=== PATIENT | male | born 1945 | race Caucasian/White ===

== ENCOUNTER 2017-11-19 19:27 | Emergency (ER) | payer OTHER ==
[~2017-11-19] VITALS: Ht 177.8 cm; Wt 107.5 kg
[~2017-11-19 19:27] MED LIST: ASPEC325 PO; BUPR75TA20 PO; CLON0.2T INTRAD; CRD4 PO; DICL1SOL6 TOP; FRRG PO; HYDR12.55 PO; LISI-461 PO; METF500T PO; SITA100T3 PO; VERA120T15 PO
[2017-11-19] MEDS ORDERED: RAPID SEQUENCE INDUCTION BAG ONE (19:31)
[2017-11-19 19:54] VITALS: TEMP 34.5; O2SAT 99; Ht 177.8 cm; Wt 107.5 kg
[2017-11-19] MEDS ORDERED: SITA100T3 PO (20:06)
[2017-11-19] MEDS ORDERED: VERA1TAB53 PO (20:06)
[2017-11-19] MEDS ORDERED: METF-383 PO (20:06)
[2017-11-19] MEDS ORDERED: BUPR75TA20 PO (20:06)
[2017-11-19] MEDS ORDERED: LISI-461 PO (20:06)
[2017-11-19] MEDS ORDERED: HYDR25TA4 PO (20:06)
[2017-11-19] MEDS ORDERED: FINA5TAB PO (20:06)
[2017-11-19] MEDS ORDERED: CTPTP3 TOP (20:06)
[2017-11-19] MEDS ORDERED: CRD4 PO (20:06)
[2017-11-19] MEDS ORDERED: DOXA2TAB PO (20:06)
[2017-11-19] MEDS ORDERED: SODIUM CHLORIDE 0.9% 1000ML 1,000 ML IV STA (20:07)
[2017-11-19] MEDS ORDERED: MIDAZOLAM HCL 1 MG/ML 2ML VIAL ONE ×2 (20:10→20:38)
[2017-11-19] MEDS ORDERED: NiCARDipine HCL INJ 2.5 MG/ML 10 ML AMP ONE (20:11)
[2017-11-19] MEDS ORDERED: FENTANYL CITRATE INJ 50 MCG/1 ML 2 ML VIAL ONE ×2 (20:11→20:37)
[2017-11-19] MEDS ORDERED: NITROGLYCERIN/D5W 100MCG/ML 20ML SYR ONE (20:11)
[2017-11-19] MEDS ORDERED: HEPARIN SOD (PORCINE) 1000 UNIT/ML 10 ML VIAL ONE (20:11)
[2017-11-19 20:14] LABS: ISTAT CREATININE 1.2 mg/dl (0.6-1.3); ISTAT IONIZED CALCIUM 1.08 mmol/l (1.12-1.32); ISTAT POTASSIUM 3.9 mEq/L (3.3-5.0)
[2017-11-19 20:15] LABS: BASO % 0.2 %; BASO ABS # 0.04 K/uL (0-0.2); EOS % 1.2 %; EOS ABS # 0.27 K/uL (0-0.5); HEMATOCRIT 45.3 % (42-52); IG# 0.19 K/uL (0.00-0.02); LYMPH % 18.4 %; LYMPH ABS # 4.02 K/uL (1.2-3.4); MEAN CELL VOLUME 92.1 fL (80-100); MEAN CORPUSCULAR HEMOGLOBIN 30.5 pg (25-34); MEAN CORPUSCULAR HGB CONC 33.1 g/dl (32-36); MEAN PLATELET VOLUME 10.8 fL (7.4-10.4); MONO % 5.4 %; MONO ABS # 1.17 K/uL (0.11-0.59); NEUT % 73.9 %; NEUT ABS # 16.11 K/uL (1.4-6.5); PLATELET COUNT 190 K/uL (130-400); RED CELL DISTRIBUTION WIDTH CV 14.9 % (11.5-14.5); RED CELL DISTRIBUTION WIDTH SD 50.2 fL (36.4-46.3)
--- NOTE | 2017-11-19 20:20 | DIAGNOSTIC IMAGING REPORT ---
ADDENDUM Endotracheal tube courses towards right mainstem bronchus at the level of the stacey. Retraction with follow-up imaging recommended. Electronically signed by: Drew Sauer M.D. 11/19/2017 8:59 PM Dictated Date/Time: 11/19/2017 8:59 PM ORIGINAL REPORT CHEST ONE VIEW PORTABLE HISTORY: 72 years-old Male PORTABLE acute cardiac arrest COMPARISON: None available TECHNIQUE: Supine AP view of the chest FINDINGS: Endotracheal tube overlies the midline, 1.4 cm superior to the stacey. The patient is rotated to the right. Enteric tube courses below the diaphragm into the region of the gastric lumen. Lungs are hypoinflated. Cardiac silhouette appears mildly enlarged. There is mild mediastinal widening with bronchovascular crowding and pulmonary vascular congestion. No pneumothorax, pleural effusion, overt pulmonary edema or focal airspace consolidation. Bones of the chest appear grossly intact. IMPRESSION: 1. Endotracheal tube overlies the midline, 1.4 cm superior to the stacey. Enteric tube courses into the region of the gastric lumen. 2. Hypoinflation with bronchovascular crowding and pulmonary vascular congestion. The above report was generated using voice recognition software. It may contain grammatical, syntax or spelling errors. Electronically signed by: Drew Sauer M.D. 11/19/2017 8:19 PM Dictated Date/Time: 11/19/2017 8:17 PM
[2017-11-19 20:23] LABS: INR 1.1 (0.9-1.1); PTT PATIENT 27.9 SECONDS (21.0-31.0)
[2017-11-19] MEDS ORDERED: MANNITOL 20% 500 ML BAG IV ONE (20:30)
[2017-11-19] MEDS ORDERED: FENTANYL CITRATE INJ 50 MCG/1 ML 2 ML VIAL IV STA (20:36)
[2017-11-19] MEDS ORDERED: MIDAZOLAM HCL 1 MG/ML 2ML VIAL IV STA (20:36)
--- NOTE | 2017-11-19 20:37 | DIAGNOSTIC IMAGING REPORT ---
HEAD WITHOUT CONTRAST (CT) CLINICAL HISTORY: 72 years-old Male with fall, arrest. Acute fall with cardiac arrest TECHNIQUE: Multiple axial CT images of the head were obtained without contrast. A dose lowering technique was utilized adhering to the principles of ALARA. CT DOSE: 3589.07 mGy.cm COMPARISON: None. FINDINGS: There is a very large acute subdural hematoma measuring up to 3.0 cm along the right lateral cerebral convexity. Subdural hemorrhage also layers along the falx cerebri. There is extensive sulcal effacement with subfalcine herniation using 2.9 cm leftward midline shift. Extensive subarachnoid hemorrhage is also noted is present within the basilar cisterns and is also noted adjacent to the bilateral frontal lobes and likely inferior portions of the temporal lobes. There is effacement of the quadrigeminal plate cistern and suprasellar cistern as well as the posterior and temporal horns right lateral ventricle. Subdural hematoma is also noted layering along the left frontal convexity measuring up to 3 mm. No territorial infarction identified. No intracranial mass or hydrocephalus. Subtle bilateral parietal skull fractures are noted as seen on image 23 series 3. Mastoid air cells are clear. Moderate mucosal thickening throughout the ethmoid air cells with secretions seen within the nasopharynx. Endotracheal tube is present. Bilateral parietal scalp hematomas are noted, 6.0 x 1.2 cm on the left, 4.7 x 0.8 cm on the right. IMPRESSION: 1. Extensive intracranial hemorrhage with very large right subdural hematoma, small left convexity subdural hematoma, and extensive subarachnoid hemorrhage causes associated sulcal effacement and results in subfalcine herniation with 2.9 cm leftward midline shift. 2. Effacement of the suprasellar and quadrigeminal plate cisterns suggests associated uncal herniation. 3. Large bilateral scalp hematomas with bilateral parietal skull fractures. Dr. Bridges was present at time of scanning in the CT department and was made aware of the findings. The above report was generated using voice recognition software. It may contain grammatical, syntax or spelling errors. Electronically signed by: Drew Sauer M.D. 11/19/2017 8:36 PM Dictated Date/Time: 11/19/2017 8:27 PM
[2017-11-19] MEDS ORDERED: MANNITOL 25% 50 ML VIAL IV ONE (20:45)
--- NOTE | 2017-11-19 20:49 | DIAGNOSTIC IMAGING REPORT ---
CERVICAL SPINE W/O CLINICAL HISTORY: 72 years-old Male with fall, arrest. Acute fall with cardiac arrest COMPARISON: CT head of same day TECHNIQUE: Multiple axial CT images of the cervical spine were obtained without contrast. A dose lowering technique was utilized adhering to the principles of ALARA. FINDINGS: No acute fracture or subluxation identified. Bones appear mildly demineralized. Multilevel degenerative changes are noted. Partially calcified pannus seen posterior to C2. Near-complete fusion is noted involving the facets at C3-C4. Partial bony fusion of the 3-C4 vertebral bodies. Severe intervertebral disc space narrowing at C5-C6 and C6-C7 with moderate sized posterior disc osteophyte complex formations. No acute malalignment of the cervical spine identified. Mastoid air cells and middle ear cavities are clear. Probe bone island of the left mandibular condyle. Multilevel facet arthrosis. Central canal and foraminal narrowing is better assessed by MRI. Probable atelectasis of the lung apices. Endotracheal tube is seen within the trachea. Enteric tube is noted within the esophagus. Multinodular thyroid with a 2.0 cm peripherally calcified nodule of the right lobe. IMPRESSION: 1. No acute fracture or subluxation. 2. Multilevel discogenic degenerative changes and facet arthrosis. 3. Multinodular goiter. The above report was generated using voice recognition software. It may contain grammatical, syntax or spelling errors. Electronically signed by: Drew Sauer M.D. 11/19/2017 8:48 PM Dictated Date/Time: 11/19/2017 8:43 PM
[2017-11-19 20:57] LABS: ALBUMIN 3.5 gm/dl (3.4-5.0); ALKALINE PHOSPHATASE 92 U/L (45-117); ALT/SGPT 49 U/L (12-78); BLOOD UREA NITROGEN 22 mg/dl (7-18); CALCIUM 8.8 mg/dl (8.5-10.1); CARBON DIOXIDE 26 mmol/L (21-32); CKMB 2.3 ng/ml (0.5-3.6); CREATININE 1.32 mg/dl (0.60-1.40); GLUCOSE 255 mg/dl (70-99); LIPASE 148 U/L (73-393); SODIUM 138 mmol/L (136-145); TOTAL PROTEIN 7.5 gm/dl (6.4-8.2)
--- NOTE | 2017-11-19 21:00 | DIAGNOSTIC IMAGING REPORT ---
(CHEST) THORAX WITHOUT, ABD/PELVIS NO IV OR ORAL CONT CLINICAL HISTORY: 72 years-old Male with fall, cardiac arrest. Acute fall with cardiac arrest TECHNIQUE: Multiaxial CT images of the chest, abdomen and pelvis were performed without contrast. A dose lowering technique was utilized adhering to the principles of ALARA. COMPARISON: None. FINDINGS: CT CHEST: Multinodular goiter with nodules in the right thyroid lobe measuring up to 2.4 cm. No pathologically enlarged lymph nodes about the chest identified. Heart is mildly enlarged with coronary arterial disease. Aortic calcifications are noted. No aortic aneurysm. No pneumothorax. No pleural effusion. Multifocal groundglass and consolidative opacities are present within the right greater than left upper lobes and left greater than right lower lobes with areas of bronchial wall thickening and mucous plugging within the bronchi. Groundglass opacities of the lingula. Endotracheal tube courses into the proximal aspect of the right mainstem bronchus at the level of the stacey. Enteric tube is noted within the esophagus. Soft tissues of the chest are unremarkable. No acute fracture identified. Multilevel degenerative changes of the spine. Sternum appears intact. No rib fracture identified. CT ABDOMEN/PELVIS: 1.8 cm low attenuating lesion of the right hepatic lobe is noted in addition to a 6 mm low attenuating lesion, not completely characterized on this noncontrast study. The larger lesion appears most compatible with a hepatic cyst. Spleen, pancreas and gallbladder appear unremarkable. Nodular thickening involves the bilateral adrenal glands suggesting hyperplasia. Moderate atrophy of the right kidney with multiple calculi seen measuring up to 4 mm. Multiple calcifications are noted with the left kidney, largest which measures 4 mm, also possibly reflecting calculus. Low attenuating lesions of the bilateral kidneys suggests renal cysts., Largest measuring 7.2 cm on the left. No ureteral calculi or obstructive uropathy. Urinary bladder is unremarkable. Moderate atherosclerosis of the aorta. No bulky adenopathy. Enteric tube terminates in the distal gastric body. No bowel obstruction or focal bowel wall thickening. Moderate stool volume of the rectum. Mild to moderate colonic diverticulosis without diverticulitis. Prior appendectomy. Soft tissues are within normal limits. Left hip arthroplasty. Sclerotic foci of the left iliac bone suggest probable bone islands. Multilevel facet arthrosis. No acute fracture identified. Multilevel discogenic degenerative changes. IMPRESSION: 1. Multifocal groundglass and consolidative opacities within the right greater than left upper lobes and left greater than right lower lobes with areas of bronchial wall thickening and mucous plugging suggest aspiration pneumonitis or multifocal pneumonia. 2. Endotracheal tube courses into the proximal right mainstem bronchus at the level of the stacey. A few millimeters of retraction with follow-up imaging recommended. 3. No acute abnormality identified within the abdomen or pelvis. No evidence of acute solid organ injury, however evaluation is limited without the use of IV contrast. 4. Additional findings as above. Electronically signed by: Drew Sauer M.D. 11/19/2017 8:58 PM Dictated Date/Time: 11/19/2017 8:48 PM
[2017-11-19] MEDS ORDERED: PROPOFOL IV EMULSION 10 MG/ML 100 ML VIAL IV ONE (21:10)
[2017-11-19] MEDS ORDERED: PROPOFOL IV EMULSION 10 MG/ML 100 ML VIAL IV PRN (21:15)
[2017-11-19 21:30] VITALS: BP 209/113; PULSE 79; O2SAT 100
--- NOTE | 2017-11-19 22:23 | EMERGENCY ROOM VISIT NOTE ---
History Report prepared by Anil: Deangelo Cesar Under the Supervision of: Dr. Tomas Bridges M.D. First contact with patient: 19:34 Stated Complaint: POST ARREST, FALL TRAUMA History of Present Illness The patient is a 72 year old male who presents to the Emergency Room with complaints of an episode of cardiac arrest occurring tonight. Per EMS, the patient went out to start his car and perhaps slipped on a patch of ice and fell backwards. The fall was not actually witnessed. They report that following the fall, the patient vomited and then laid there for 3-5 minutes. They state that the found the patient on the group with agonal breathing, and then proceeded to call EMS. They note that police found him in cardiac arrest, applied AED, and began CPR. They report that EMS continued CPR upon arrival. They state that the patient was given one of epi and and they achieved ROSC. They note that the patient's right pupil was larger than his left, he was clenching down, was not following commands, there was bleeding out of his left ear, and was experiencing vomiting. They report that the patient's airway was suctioned in order for his saturation to reach at best 93% but this was tenuous. They state that the patient's blood pressure after ROSC was 187/118 with a heart rate of 110 with frequent PVCs. Due to concerns about the airway EMS contacted medical command and requested intubation. This was granted. They note that the patient received 30mg of etomidate and 5mg of midazolam. They report that the patient was intubated prior to arrival without difficulty and saturations were 100%. Per , the patient has a history of diabetes, a stone in his bladder, and a hip replacement last year. HPI limited secondary to cardiac arrest. Source of History: spouse/significant other, EMS History Limited By: cardiac arrest Onset: tonight Position: other (global) Quality: other (cardiac arrest) Timing: other (an episode) Associated Symptoms: + vomiting Review of Systems ROS limited secondary to cardiac arrest. Past Medical & Surgical Medical Problems: (1) Bladder stone (2) Diabetes Surgical Problems: (1) S/P hip replacement Family History No pertinent family history stated. Social History Marital Status: Housing Status: lives with family Occupation Status: retired Current/Historical Medications Scheduled Bupropion (Wellbutrin), 75 MG PO BID Clonidine HCl (Clonidine HCl), 0.2 MG TOP WK Doxazosin Mesylate (Doxazosin Mesylate), 4 MG PO HS Doxazosin Mesylate (Cardura), 2 MG PO HS Finasteride (Proscar), 5 MG PO DAILY Hydrochlorothiazide (Hctz), 25 MG PO DAILY Lisinopril (Zestril), 10 MG PO DAILY Metformin Hcl (Glucophage), 850 MG PO BID Sitagliptin Phosphate (Januvia), 100 MG PO DAILY Verapamil Hcl (Verapamil Hcl Er), 360 MG PO DAILY Allergies Coded Allergies: No Known Allergies (Unverified , 11/19/17) Physical Exam Vital Signs Date Time Temp Pulse Resp B/P (MAP) Pulse Ox O2 Delivery O2 Flow Rate FiO2 11/19/17 21:50 100 11/19/17 21:30 79 18 209/113 100 11/19/17 20:42 81 28 99 11/19/17 20:41 218/118 11/19/17 20:37 82 32 98 11/19/17 20:36 207/125 11/19/17 20:32 86 31 98 11/19/17 20:31 212/118 11/19/17 20:27 89 16 99 11/19/17 20:26 227/133 11/19/17 20:07 85 16 98 11/19/17 20:06 205/125 11/19/17 20:04 208/116 11/19/17 20:02 91 32 97 11/19/17 20:01 195/105 11/19/17 19:57 66 11/19/17 19:57 99 21 182/112 94 11/19/17 19:54 99 Mechanical Ventilator 11/19/17 19:54 92 Ambu-Bag 15.0 11/19/17 19:54 34.5 91 23 191/113 Ambu-Bag 15.0 11/19/17 19:53 191/113 Physical Exam GENERAL: Unconscious, unresponsive except to gag reflex, intubated. HENT: Normocephalic. Swelling noted in the left parietal area without open wounds. No hyman sign or raccoon eyes. Oropharynx unremarkable. ET tube in place. The left TM is obscured by blood. Right TM is obscured by cerumen. Vomitus on the face. EYES: Normal conjunctiva. Sclera non-icteric. Pupils are 6-7 mm bilaterally and minimally reactive. NECK: Cervical collar in place. No step-offs. No tracheal deviation, No JVD. RESPIRATORY: Breath sounds equal bilaterally. CARDIAC: Regular rate and rhythm. No murmurs. ABDOMEN: Soft, non-distended. No masses. RECTAL: Deferred. MUSCULOSKELETAL: Atraumatic. No edema. LOWER EXTREMITIES: Slightly mottled discoloration. NEURO: GCS of 6 SKIN: No rash or jaundice noted. Medical Decision & Procedures ER Provider Diagnostic Interpretation: Radiology results as stated below per my review and radiologist interpretation: CHEST ONE VIEW PORTABLE HISTORY: 72 years-old Male PORTABLE acute cardiac arrest COMPARISON: None available TECHNIQUE: Supine AP view of the chest FINDINGS: Endotracheal tube overlies the midline, 1.4 cm superior to the stacey. The patient is rotated to the right. Enteric tube courses below the diaphragm into the region of the gastric lumen. Lungs are hypoinflated. Cardiac silhouette appears mildly enlarged. There is mild mediastinal widening with bronchovascular crowding and pulmonary vascular congestion. No pneumothorax, pleural effusion, overt pulmonary edema or focal airspace consolidation. Bones of the chest appear grossly intact. IMPRESSION: 1. Endotracheal tube overlies the midline, 1.4 cm superior to the stacey. Enteric tube courses into the region of the gastric lumen. 2. Hypoinflation with bronchovascular crowding and pulmonary vascular congestion. The above report was generated using voice recognition software. It may contain grammatical, syntax or spelling errors. Electronically signed by: Drew Sauer M.D. 11/19/2017 8:19 PM HEAD WITHOUT CONTRAST (CT) CLINICAL HISTORY: 72 years-old Male with fall, arrest. Acute fall with cardiac arrest TECHNIQUE: Multiple axial CT images of the head were obtained without contrast. A dose lowering technique was utilized adhering to the principles of ALARA. CT DOSE: 3589.07 mGy.cm COMPARISON: None. FINDINGS: There is a very large acute subdural hematoma measuring up to 3.0 cm along the right lateral cerebral convexity. Subdural hemorrhage also layers along the falx cerebri. There is extensive sulcal effacement with subfalcine herniation using 2.9 cm leftward midline shift. Extensive subarachnoid hemorrhage is also noted is present within the basilar cisterns and is also noted adjacent to the bilateral frontal lobes and likely inferior portions of the temporal lobes. There is effacement of the quadrigeminal plate cistern and suprasellar cistern as well as the posterior and temporal horns right lateral ventricle. Subdural hematoma is also noted layering along the left frontal convexity measuring up to 3 mm. No territorial infarction identified. No intracranial mass or hydrocephalus. Subtle bilateral parietal skull fractures are noted as seen on image 23 series 3. Mastoid air cells are clear. Moderate mucosal thickening throughout the ethmoid air cells with secretions seen within the nasopharynx. Endotracheal tube is present. Bilateral parietal scalp hematomas are noted, 6.0 x 1.2 cm on the left, 4.7 x 0.8 cm on the right. IMPRESSION: 1. Extensive intracranial hemorrhage with very large right subdural hematoma, small left convexity subdural hematoma, and extensive subarachnoid hemorrhage causes associated sulcal effacement and results in subfalcine herniation with 2.9 cm leftward midline shift. 2. Effacement of the suprasellar and quadrigeminal plate cisterns suggests associated uncal herniation. 3. Large bilateral scalp hematomas with bilateral parietal skull fractures. Dr. Bridges was present at time of scanning in the CT department and was made aware of the findings. The above report was generated using voice recognition software. It may contain grammatical, syntax or spelling errors. Electronically signed by: Drew Sauer M.D. 11/19/2017 8:36 PM (CHEST) THORAX WITHOUT, ABD/PELVIS NO IV OR ORAL CONT CLINICAL HISTORY: 72 years-old Male with fall, cardiac arrest. Acute fall with cardiac arrest TECHNIQUE: Multiaxial CT images of the chest, abdomen and pelvis were performed without contrast. A dose lowering technique was utilized adhering to the principles of ALARA. COMPARISON: None. FINDINGS: CT CHEST: Multinodular goiter with nodules in the right thyroid lobe measuring up to 2.4 cm. No pathologically enlarged lymph nodes about the chest identified. Heart is mildly enlarged with coronary arterial disease. Aortic calcifications are noted. No aortic aneurysm. No pneumothorax. No pleural effusion. Multifocal groundglass and consolidative opacities are present within the right greater than left upper lobes and left greater than right lower lobes with areas of bronchial wall thickening and mucous plugging within the bronchi. Groundglass opacities of the lingula. Endotracheal tube courses into the proximal aspect of the right mainstem bronchus at the level of the stacey. Enteric tube is noted within the esophagus. Soft tissues of the chest are unremarkable. No acute fracture identified. Multilevel degenerative changes of the spine. Sternum appears intact. No rib fracture identified. CT ABDOMEN/PELVIS: 1.8 cm low attenuating lesion of the right hepatic lobe is noted in addition to a 6 mm low attenuating lesion, not completely characterized on this noncontrast study. The larger lesion appears most compatible with a hepatic cyst. Spleen, pancreas and gallbladder appear unremarkable. Nodular thickening involves the bilateral adrenal glands suggesting hyperplasia. Moderate atrophy of the right kidney with multiple calculi seen measuring up to 4 mm. Multiple calcifications are noted with the left kidney, largest which measures 4 mm, also possibly reflecting calculus. Low attenuating lesions of the bilateral kidneys suggests renal cysts., Largest measuring 7.2 cm on the left. No ureteral calculi or obstructive uropathy. Urinary bladder is unremarkable. Moderate atherosclerosis of the aorta. No bulky adenopathy. Enteric tube terminates in the distal gastric body. No bowel obstruction or focal bowel wall thickening. Moderate stool volume of the rectum. Mild to moderate colonic diverticulosis without diverticulitis. Prior appendectomy. Soft tissues are within normal limits. Left hip arthroplasty. Sclerotic foci of the left iliac bone suggest probable bone islands. Multilevel facet arthrosis. No acute fracture identified. Multilevel discogenic degenerative changes. IMPRESSION: 1. Multifocal groundglass and consolidative opacities within the right greater than left upper lobes and left greater than right lower lobes with areas of bronchial wall thickening and mucous plugging suggest aspiration pneumonitis or multifocal pneumonia. 2. Endotracheal tube courses into the proximal right mainstem bronchus at the level of the stacey. A few millimeters of retraction with follow-up imaging recommended. 3. No acute abnormality identified within the abdomen or pelvis. No evidence of acute solid organ injury, however evaluation is limited without the use of IV contrast. 4. Additional findings as above. Electronically signed by: Drew Sauer M.D. 11/19/2017 8:58 PM CERVICAL SPINE W/O CLINICAL HISTORY: 72 years-old Male with fall, arrest. Acute fall with cardiac arrest COMPARISON: CT head of same day TECHNIQUE: Multiple axial CT images of the cervical spine were obtained without contrast. A dose lowering technique was utilized adhering to the principles of ALARA. FINDINGS: No acute fracture or subluxation identified. Bones appear mildly demineralized. Multilevel degenerative changes are noted. Partially calcified pannus seen posterior to C2. Near-complete fusion is noted involving the facets at C3-C4. Partial bony fusion of the 3-C4 vertebral bodies. Severe intervertebral disc space narrowing at C5-C6 and C6-C7 with moderate sized posterior disc osteophyte complex formations. No acute malalignment of the cervical spine identified. Mastoid air cells and middle ear cavities are clear. Probe bone island of the left mandibular condyle. Multilevel facet arthrosis. Central canal and foraminal narrowing is better assessed by MRI. Probable atelectasis of the lung apices. Endotracheal tube is seen within the trachea. Enteric tube is noted within the esophagus. Multinodular thyroid with a 2.0 cm peripherally calcified nodule of the right lobe. IMPRESSION: 1. No acute fracture or subluxation. 2. Multilevel discogenic degenerative changes and facet arthrosis. 3. Multinodular goiter. The above report was generated using voice recognition software. It may contain grammatical, syntax or spelling errors. Electronically signed by: Drew Sauer M.D. 11/19/2017 8:48 PM (CHEST) THORAX WITHOUT, ABD/PELVIS NO IV OR ORAL CONT CLINICAL HISTORY: 72 years-old Male with fall, cardiac arrest. Acute fall with cardiac arrest TECHNIQUE: Multiaxial CT images of the chest, abdomen and pelvis were performed without contrast. A dose lowering technique was utilized adhering to the principles of ALARA. COMPARISON: None. FINDINGS: CT CHEST: Multinodular goiter with nodules in the right thyroid lobe measuring up to 2.4 cm. No pathologically enlarged lymph nodes about the chest identified. Heart is mildly enlarged with coronary arterial disease. Aortic calcifications are noted. No aortic aneurysm. No pneumothorax. No pleural effusion. Multifocal groundglass and consolidative opacities are present within the right greater than left upper lobes and left greater than right lower lobes with areas of bronchial wall thickening and mucous plugging within the bronchi. Groundglass opacities of the lingula. Endotracheal tube courses into the proximal aspect of the right mainstem bronchus at the level of the stacey. Enteric tube is noted within the esophagus. Soft tissues of the chest are unremarkable. No acute fracture identified. Multilevel degenerative changes of the spine. Sternum appears intact. No rib fracture identified. CT ABDOMEN/PELVIS: 1.8 cm low attenuating lesion of the right hepatic lobe is noted in addition to a 6 mm low attenuating lesion, not completely characterized on this noncontrast study. The larger lesion appears most compatible with a hepatic cyst. Spleen, pancreas and gallbladder appear unremarkable. Nodular thickening involves the bilateral adrenal glands suggesting hyperplasia. Moderate atrophy of the right kidney with multiple calculi seen measuring up to 4 mm. Multiple calcifications are noted with the left kidney, largest which measures 4 mm, also possibly reflecting calculus. Low attenuating lesions of the bilateral kidneys suggests renal cysts., Largest measuring 7.2 cm on the left. No ureteral calculi or obstructive uropathy. Urinary bladder is unremarkable. Moderate atherosclerosis of the aorta. No bulky adenopathy. Enteric tube terminates in the distal gastric body. No bowel obstruction or focal bowel wall thickening. Moderate stool volume of the rectum. Mild to moderate colonic diverticulosis without diverticulitis. Prior appendectomy. Soft tissues are within normal limits. Left hip arthroplasty. Sclerotic foci of the left iliac bone suggest probable bone islands. Multilevel facet arthrosis. No acute fracture identified. Multilevel discogenic degenerative changes. IMPRESSION: 1. Multifocal groundglass and consolidative opacities within the right greater than left upper lobes and left greater than right lower lobes with areas of bronchial wall thickening and mucous plugging suggest aspiration pneumonitis or multifocal pneumonia. 2. Endotracheal tube courses into the proximal right mainstem bronchus at the level of the stacey. A few millimeters of retraction with follow-up imaging recommended. 3. No acute abnormality identified within the abdomen or pelvis. No evidence of acute solid organ injury, however evaluation is limited without the use of IV contrast. 4. Additional findings as above. Electronically signed by: Drew Sauer M.D. 11/19/2017 8:58 PM Laboratory Results 11/19/17 19:59 Red Blood Count 4.92, Mean Corpuscular Volume 92.1, Mean Corpuscular Hemoglobin 30.5, Mean Corpuscular Hemoglobin Concent 33.1, Mean Platelet Volume 10.8, Neutrophils (%) (Auto) 73.9, Lymphocytes (%) (Auto) 18.4, Monocytes (%) (Auto) 5.4, Eosinophils (%) (Auto) 1.2, Basophils (%) (Auto) 0.2, Neutrophils # (Auto) 16.11, Lymphocytes # (Auto) 4.02, Monocytes # (Auto) 1.17, Eosinophils # (Auto) 0.27, Basophils # (Auto) 0.04 11/19/17 19:59 Test 11/19/17 19:59 11/19/17 20:02 11/19/17 20:05 11/19/17 20:50 White Blood Count 21.80 K/uL (4.8-10.8) Red Blood Count 4.92 M/uL (4.7-6.1) Hemoglobin 15.0 g/dL (14.0-18.0) Hematocrit 45.3 % (42-52) Mean Corpuscular Volume 92.1 fL (80-100) Mean Corpuscular Hemoglobin 30.5 pg (25-34) Mean Corpuscular Hemoglobin Concent 33.1 g/dl (32-36) Platelet Count 190 K/uL (130-400) Mean Platelet Volume 10.8 fL (7.4-10.4) Neutrophils (%) (Auto) 73.9 % Lymphocytes (%) (Auto) 18.4 % Monocytes (%) (Auto) 5.4 % Eosinophils (%) (Auto) 1.2 % Basophils (%) (Auto) 0.2 % Neutrophils # (Auto) 16.11 K/uL (1.4-6.5) Lymphocytes # (Auto) 4.02 K/uL (1.2-3.4) Monocytes # (Auto) 1.17 K/uL (0.11-0.59) Eosinophils # (Auto) 0.27 K/uL (0-0.5) Basophils # (Auto) 0.04 K/uL (0-0.2) RDW Standard Deviation 50.2 fL (36.4-46.3) RDW Coefficient of Variation 14.9 % (11.5-14.5) Immature Granulocyte % (Auto) 0.9 % Immature Granulocyte # (Auto) 0.19 K/uL (0.00-0.02) Prothrombin Time 11.9 SECONDS (9.0-12.0) Prothromb Time International Ratio 1.1 (0.9-1.1) Activated Partial Thromboplast Time 27.9 SECONDS (21.0-31.0) Partial Thromboplastin Ratio 1.1 Est Creatinine Clear Calc Drug Dose 63.9 ml/min Estimated GFR () 62.9 Estimated GFR (Non- 54.3 BUN/Creatinine Ratio 17.0 (10-20) Calcium Level 8.8 mg/dl (8.5-10.1) Magnesium Level mg/dl (1.8-2.4) Total Bilirubin 0.4 mg/dl (0.2-1) Direct Bilirubin mg/dl (0-0.2) Aspartate Amino Transf (AST/SGOT) U/L (15-37) Alanine Aminotransferase (ALT/SGPT) 49 U/L (12-78) Alkaline Phosphatase 92 U/L (45-117) Total Creatine Kinase U/L (39-308) Creatine Kinase MB 2.3 ng/ml (0.5-3.6) Troponin I 0.021 ng/ml (0-0.045) Total Protein 7.5 gm/dl (6.4-8.2) Albumin 3.5 gm/dl (3.4-5.0) Lipase 148 U/L (73-393) Bedside Hemoglobin 15.6 g/dl (14.0-18.0) Bedside Hematocrit 46 % (42-52) Bedside Sodium 140 mEq/L (135-144) Bedside Potassium 3.9 mEq/L (3.3-5.0) Bedside Chloride 100 mEq/L (101-112) Bedside Total CO2 29 mEq/l (24-31) Anion Gap 15.0 mmol/L (16-25) Bedside Blood Urea Nitrogen 32 mg/dl (7-18) Bedside Creatinine 1.2 mg/dl (0.6-1.3) Bedside Glucose (other) 265 mg/dl (70-99) Bedside Ionized Calcium (Víctor) 1.08 mmol/l (1.12-1.32) Creatine Kinase MB Ratio (0-3.0) Urine Color YELLOW Urine Appearance CLEAR (CLEAR) Urine pH 6.5 (4.5-7.5) Urine Specific [place] 1.016 (1.000-1.030) Urine Protein 3+ (NEG) Urine Glucose (UA) TRACE (NEG) Urine Ketones NEG (NEG) Urine Occult Blood 2+ (NEG) Urine Nitrite NEG (NEG) Urine Bilirubin NEG (NEG) Urine Urobilinogen NEG (NEG) Urine Leukocyte Esterase SMALL (NEG) Urine WBC (Auto) >30 /hpf (0-5) Urine RBC (Auto) 5-10 /hpf (0-4) Urine Hyaline Casts (Auto) 1-5 /lpf (0-5) Urine Epithelial Cells (Auto) 0-5 /lpf (0-5) Urine Bacteria (Auto) NEG (NEG) Laboratory results reviewed by me Medications Administered Medications (Trade) Dose Ordered Sig/Kenisha Route Start Time Stop Time Status Last Admin Dose Admin Midazolam HCl (Versed Inj) 2 mg NOW STAT IV 11/19/17 20:36 11/19/17 20:37 DC 11/19/17 20:36 2 MG Fentanyl Citrate (Fentanyl Inj) 50 mcg NOW STAT IV 11/19/17 20:36 11/19/17 20:39 DC 11/19/17 20:36 50 MCG Mannitol (Mannitol 25%) 50 gm ONE ONCE IV 11/19/17 20:45 11/19/17 20:46 DC 11/19/17 20:51 50 GM Propofol (Diprivan Iv Emulsion 100ml Vial) 1 dose STK-MED ONCE IV 11/19/17 21:10 11/19/17 21:11 DC 11/19/17 21:12 1 DOSE ECG Indication: other (cardiac arrest) Rate (beats per minute): 59 Rhythm: sinus bradycardia Findings: 1st degree AV block, Q waves (Septal), ST elevation (Inferior) Comparison ECG Date: Prior to arrival. Change: Patient's electrocardiograms interpreted by me. Pre-hospital 12 Lead ECG: Sinus rhythm. 78. PVC present. Interior ST elevation. ED Course 1948: The patient was evaluated in room B1. A complete history and physical exam was performed. Critical care at the bedside. 2 additional IV sites established. Blood work formed. Rocuronium, fentanyl, and Versed given. ECG performed and reveals ST elevation. Cardiology arrived and was updated. CT notified and is awaiting patient. Chest imaging as above. 2027: Patient returned from CT imaging. consultation made with Alex Byrnes. [facility] unavailable. [facility] contacted. 2035: Fentanyl Inj 50mcg IV, Versed Inj 2mg IV. 2044: Flight crew arrived. Mannitol 50 gm Protocol IV 2121: Flight crew requested propofol for sedation. This was ordered. The patient will be transferred for further treatment. Medical Decision Additional history obtained from EMS and the family.. The patient's history was concerning for cardiac arrest. Differential diagnosis: Etiologies such as cardiac ischemia, aortic dissection, pulmonary embolism, electrolyte abnormality, acidosis, tension pneumothorax, hypothermia, hypovolemia, intracranial event, as well as others were entertained. Physical examination: As above. Concerns for head trauma present. ER treatment provided: IV saline hydration IV rocuronium IV Versed IV fentanyl Ventilatory management IV mannitol IV propofol Diagnostics interpreted by me: ECG: Concerning for inferior ST elevation The labs revealed significant leukocytosis on CBC. No anemia. Chemistry panel unremarkable except for hyperglycemia. Troponin negative. Imaging studies: Chest x-ray and CT scans as above. Course: EMS contacted me for medical command. They noted his arrest and return to spontaneous circulation. They were very concerned about his airway and noted likely aspiration given a significant amount of vomitus. Paramedics are present and intubation was performed using etomidate and Versed. Medics reported no difficulty with this. Post intubation saturations were 100%. Initial 12-lead ECG prior to intubation revealed a tachycardia with frequent premature contractions. After the medics stabilize the airway and mobilized for transport a repeat ECG was performed and was concerning for ST elevation in the inferior leads. His was transmitted and based upon this a heart alert was initiated and a consultation was placed with Dr. Gomez of interventional cardiology. A consultation was also made with Dr. Louis Zaragoza of critical care medicine. Both presented to the emergency department promptly. Upon arrival the patient was intubated. His pupils were dilated. He was gagging the tube and did have an episode of vomiting. His mouth was cleared via suction. Physical examination was performed. He was removed from the long spine board with cervical immobilization. His back did not reveal any significant abnormalities. He was hypertensive. He was given rocuronium, Versed, and fentanyl for facilitation of his workup. The patient was given additional doses of fentanyl and Versed. He was taken emergently to CT scan based upon the concerns for head injury. Cardiology was standing by. The patient's CT scan of the head was very concerning for significant subdural blood , subarachnoid hemorrhage, midline shift and impending herniation. Chest imaging revealed findings supporting the concerns of aspiration. Endotracheal tube was slightly deep but within the mainstem. He was saturating 100% without any ventilatory issues. The remainder of CT imaging did not reveal any significant findings. The patient had a significant leukocytosis but otherwise his labs were unremarkable. He was brought back to the emergency department and his ventilatory rate was increased by critical care as well as having mannitol administered. The patient's family was informed. He has neurosurgery and trauma is not available here tertiary care center management was necessary. The family requested [facility]. I placed an emergent consultation with [facility] and discussed the case with Dr. Mcclain. The patient was accepted. [facility] was unavailable. [facility] was consulted. They arrived and were informed. Propofol requested for sedation and this was ordered. Family was updated throughout. The patient was transferred for further management. Head Trauma GCS Score: 6 Medication Reconcilliation Current Medication List: was personally reviewed by me Impression Primary Impression: Cardiac arrest Additional Impressions: Subdural hematoma Subarachnoid hemorrhage Acute inferior myocardial infarction Critical Care I have personally spent greater than 95 minutes of critical care time in the direct management of this patient. This includes bedside care, interpretation of diagnostic studies, and testing, discussion with consultants, patient, and family members, and other required patient management activities. This 95 minutes is in excess of all separately billable procedures. Scribe Attestation The scribe's documentation has been prepared under my direction and personally reviewed by me in its entirety. I confirm that the note above accurately reflects all work, treatment, procedures, and medical decision making performed by me. Departure Information Dispostion Transfer Acute Care Facility Referrals No Doctor, Assigned (PCP) Problem Qualifiers
--- NOTE | 2017-11-20 01:29 | Critical Care Progress Note ---
Critical Care Progress Note Date of Service Nov 20, 2017. Critical Care Progress Note Critical care responded to the code on this patient to assist with ED management. Patient brought to ED for suspected STEMI. Patient reportedly suffered unwitnessed suspected fall on patch of ice and was found unresponsive by 3- 5 minutes later. Police and EMS were called and were able to obtain ROSC with [facility]. Patient was intubated prior to arrival to ED. He was saturating well but continued to vomit. He was noted to have bleeding from his left ear, and a dilated right pupil. Please see other notes in this chart for full details regarding his hospital course. Due to patient's head trauma, a CT was ordered which was very concerning for significant subdural blood, subarachnoid hemorrhage, midline shift and impending herniation. Chest imaging disclosed suspected aspiration. 50 gm mannitol push was ordered. Findings and prognosis were discussed with the family. Topics of organ donation and patient's wishes were discussed Family elected to have patient transferred to tertiary center for further evaluation. Please see Dr. Bridges's note for further details. Resident Physician Supervision Note: Dr. Jacob was resident physician during care of patient. I separately evaluated patient and did history and exam. I discussed the case with the resident and generally agree with the findings and plan. Documented By: Louis Zaragoza DO
== END 2017-11-19 21:31 | disposition short-term general hospital (02) ==
LOC: EDBD 19:27 → C.EDB 19:30 → MERGE 19:50 → C.EDB 21:31
DX: I46.9 Cardiac arrest, cause unspecified (principal); S06.5X0A Traumatic subdural hemorrhage without loss of consciousness, initial encounter; I60.9 Nontraumatic subarachnoid hemorrhage, unspecified; I21.9 Acute myocardial infarction, unspecified; W19.XXXA Unspecified fall, initial encounter; E11.9 Type 2 diabetes mellitus without complications